=== PATIENT | male | born 1970 | race African-American/Black ===

== ENCOUNTER 2020-09-29 18:00 | Inpatient (IN) | payer MEDICAID ==
[~2020-09-29] VITALS: Ht 180.3 cm; Wt 97.1 kg
[2020-09-29 18:41] LABS: BASOPHILS % 0.4 % (0.0-2.0); EOSINOPHILS % 2.7 % (0.0-5.0); HEMATOCRIT. 44.2 % (42.0-52.0); LYMPHOCYTES % 24.6 % (20.0-50.0); MEAN CORPUSCULAR VOLUME 76.8 fL (80.0-94.0); MEAN PLATELET VOLUME 7.8 fl (7.4-10.4); MONOCYTES % 10.3 % (2.0-8.0); PLATELET 205 x1000/uL (130-400); RED BLOOD CELL COUNT 5.76 mill/uL (4.7-6.1); RED CELL DISTRIBUTION WIDTH 14.1 % (11.6-14.6)
[2020-09-29 18:44] LABS: CHLORIDE 110 mEq/L (98-107)
[2020-09-29 18:50] LABS: ETHANOL BLOOD < 10 mg/dL
[2020-09-29 18:53] LABS: LDL CHOLESTEROL 150 mg/dL (5-100)
[2020-09-29] MEDS ORDERED: IOHEXOL-350 100 ML BOTTLE ONE (18:54)
[2020-09-29 23:30] VITALS: BP 141/83
[2020-09-29] MEDS ORDERED: LISI-186 PO (23:40)
[2020-09-29] MEDS ORDERED: ASPI-1497 PO (23:40)
[2020-09-29] MEDS ORDERED: METH10TA7 PO (23:40)
[2020-09-29] MEDS ORDERED: FURO20TA4 PO (23:40)
[2020-09-29] MEDS ORDERED: METO-385 PO (23:40)
[2020-09-30] VITALS (7 sets, daily range): BP systolic 90–146; BP diastolic 54–89
[2020-09-30] MEDS ORDERED: POTASSIUM CHLORIDE 20MEQ TABLET SR PO SCH (00:15)
[2020-09-30] MEDS: ACETAMINOPHEN 325MG TABLET PO PRN ×2 (00:23→21:46)
[2020-09-30] MEDS ORDERED: *PATIENT'S OWN MEDICATION STORAGE XX SCH (03:00)
[2020-09-30] MEDS ORDERED: HYDROCODONE/ACETAMINOPHEN 5/325MG TABLET PO PRN (03:45)
[2020-09-30 06:06] LABS: CHLORIDE 111 mEq/L (98-107)
[2020-09-30 06:15] LABS: BASOPHILS % 0.3 % (0.0-2.0); EOSINOPHILS % 3.9 % (0.0-5.0); HEMATOCRIT. 43.1 % (42.0-52.0); HEMOGLOBIN. 14.1 g/dL (14.0-18.0); LYMPHOCYTES % 29.7 % (20.0-50.0); MEAN CORPUSCULAR HEMOGLOBIN 25.3 pg (28.0-32.0); MEAN CORPUSCULAR VOLUME 77.5 fL (80.0-94.0); MEAN PLATELET VOLUME 8.3 fl (7.4-10.4); NEUTROPHILS % 52.1 % (40.0-76.0); PLATELET 184 x1000/uL (130-400); RED BLOOD CELL COUNT 5.56 mill/uL (4.7-6.1); RED CELL DISTRIBUTION WIDTH 13.5 % (11.6-14.6)
[2020-09-30 06:22] LABS: T4 FREE 2.41 ng/dL (0.76-1.46)
[2020-09-30] MEDS ORDERED: RIVAROXABAN 10 MG TABLET PO SCH (09:00)
[2020-09-30] MEDS ORDERED: METHIMAZOLE 5MG TABLET PO SCH (09:00)
[2020-09-30] MEDS: ASPIRIN 81MG TABLET PO SCH (09:31)
[2020-09-30] MEDS: FUROSEMIDE 20MG TABLET PO SCH (09:31)
[2020-09-30] MEDS: METOPROLOL TARTRATE 25MG TABLET PO SCH ×2 (09:31→21:41)
[2020-09-30] MEDS: LISINOPRIL 5MG TABLET PO SCH (09:32)
[2020-09-30 16:07] LABS: CLARITY URINE CLEAR (CLEAR); COLOR URINE YELLOW (YELLOW); KETONES URINE NEGATIVE (NEGATIVE); LEUKOCYTE ESTERASE URINE NEGATIVE (NEGATIVE); NITRITE URINE NEGATIVE (NEGATIVE); OCCULT BLOOD URINE NEGATIVE (NEGATIVE); PROTEIN URINE NEGATIVE (NEGATIVE); SPECIFIC GRAVITY URINE 1.011 (1.005-1.030); UROBILINOGEN URINE 0.2 E.U./dL (0.2-1.0)
[2020-09-30 16:38] LABS: *AMPHETAMINES SCREEN URINE NEGATIVE (NEGATIVE); *BARBITURATES SCREEN URINE NEGATIVE (NEGATIVE); *BENZODIAZEPINES SCREEN URINE NEGATIVE (NEGATIVE); *COCAINE SCREEN URINE NEGATIVE (NEGATIVE); CANNABINOID URINE SCREEN NEGATIVE (NEGATIVE); PHENCYCLIDINE URINE SCREEN NEGATIVE (NEGATIVE)
[2020-09-30 16:39] LABS: METHADONE URINE SCREEN NEGATIVE (NEGATIVE); OPIATES URINE SCREEN NEGATIVE (NEGATIVE)
[2020-09-30] MEDS: RIVAROXABAN 20 MG TABLET PO SCH (17:14)
[2020-09-30] MEDS: ATORVASTATIN CALCIUM 40MG TABLET PO SCH (21:41)
[2020-10-01 00:39] VITALS: BP 122/76
[2020-10-01 04:00] VITALS: BP 125/82
[2020-10-01 08:00] VITALS: BP 123/75
[2020-10-01] MEDS: FUROSEMIDE 20MG TABLET PO SCH (09:31)
[2020-10-01] MEDS: METOPROLOL TARTRATE 25MG TABLET PO SCH ×2 (09:31→20:43)
[2020-10-01] MEDS: ASPIRIN 81MG TABLET PO SCH (09:31)
[2020-10-01] MEDS: LISINOPRIL 5MG TABLET PO SCH (09:31)
[2020-10-01] MEDS: METHIMAZOLE 10MG TABLET PO SCH ×2 (09:32→18:22)
[2020-10-01 12:00] VITALS: BP 117/70
[2020-10-01 16:00] VITALS: BP 105/63
[2020-10-01] MEDS: RIVAROXABAN 20 MG TABLET PO SCH (18:22)
[2020-10-01] MEDS: ACETAMINOPHEN 325MG TABLET PO PRN (18:30)
[2020-10-01 20:00] VITALS: BP 135/94
[2020-10-01] MEDS: ATORVASTATIN CALCIUM 40MG TABLET PO SCH (20:42)
[2020-10-02] VITALS: BP 118/76
[2020-10-02 04:00] VITALS: BP 130/77
[2020-10-02 08:00] VITALS: BP 125/74
[2020-10-02 08:17] LABS: BASOPHILS % 0.2 % (0.0-2.0); EOSINOPHILS % 3.8 % (0.0-5.0); HEMATOCRIT. 47.6 % (42.0-52.0); HEMOGLOBIN. 15.4 g/dL (14.0-18.0); LYMPHOCYTES % 29.9 % (20.0-50.0); MEAN CORPUSCULAR HEMOGLOBIN 25.1 pg (28.0-32.0); MEAN CORPUSCULAR VOLUME 77.6 fL (80.0-94.0); MEAN PLATELET VOLUME 8.5 fl (7.4-10.4); MONOCYTES % 13.7 % (2.0-8.0); NEUTROPHILS % 52.4 % (40.0-76.0); PLATELET 208 x1000/uL (130-400); RED BLOOD CELL COUNT 6.14 mill/uL (4.7-6.1); RED CELL DISTRIBUTION WIDTH 13.9 % (11.6-14.6)
[2020-10-02] MEDS: ASPIRIN 81MG TABLET PO SCH (08:23)
[2020-10-02] MEDS: LISINOPRIL 5MG TABLET PO SCH (08:23)
[2020-10-02] MEDS: METOPROLOL TARTRATE 25MG TABLET PO SCH (08:23)
[2020-10-02] MEDS: METHIMAZOLE 10MG TABLET PO SCH (08:23)
[2020-10-02] MEDS: FUROSEMIDE 20MG TABLET PO SCH (08:23)
[2020-10-02 08:37] LABS: CHLORIDE 106 mEq/L (98-107)
[2020-10-02] MEDS ORDERED: TAP PO (11:26)
[2020-10-02 12:00] VITALS: BP 118/73
[2020-10-02 12:22] VITALS: BP 118/73
== END 2020-10-02 13:45 | disposition home or self-care (01) | DRG 47 ==
LOC: ER 18:00 → 5WST 20:14 → EDBEDREQTM 20:22 → EDBEDREQ 20:22 → EDBEDREQSVC 20:22 → ENRESERV 22:31
PROVIDERS: ADMIT Internal Medicine; ATTEND Internal Medicine
DX: G45.9 Transient cerebral ischemic attack, unspecified (principal); I50.21 Acute systolic (congestive) heart failure; E87.8 Other disorders of electrolyte and fluid balance, not elsewhere classified; I27.20 Pulmonary hypertension, unspecified; I11.0 Hypertensive heart disease with heart failure; I51.3 Intracardiac thrombosis, not elsewhere classified; E05.00 Thyrotoxicosis with diffuse goiter without thyrotoxic crisis or storm; E66.3 Overweight; E87.6 Hypokalemia; E78.00 Pure hypercholesterolemia, unspecified; E03.9 Hypothyroidism, unspecified; I36.1 Nonrheumatic tricuspid (valve) insufficiency; Z80.0 Family history of malignant neoplasm of digestive organs; Z80.42 Family history of malignant neoplasm of prostate; Z89.429 Acquired absence of other toe(s), unspecified side; Z79.82 Long term (current) use of aspirin; Z79.899 Other long term (current) drug therapy; Z68.29 Body mass index [BMI] 29.0-29.9, adult
CPT/HCPCS: 36415; 70496; 70498; 70551; 71045; 72141; 80048; 80053; 80305; 80320; 81003; 82962; 83036; 83520; 83721; 83880; 84439; 84443; 84481; 84484; 85025; 93005; 93306; 99291; Q9967; G0480